=== PATIENT | male | born 1935 | race Caucasian/White ===

== ENCOUNTER 2018-07-18 16:49 | Emergency (ER) | payer OTHER, MEDICARE | END 2018-07-18 17:52 | disposition home or self-care (01) | LOC: FER 16:49 ==

== ENCOUNTER 2021-03-12 11:15 | Emergency (ER) | payer OTHER, MEDICARE ==
[2021-03-12 11:24] VITALS: BP 144/81; PULSE 64; TEMP 98.3; BMI 29.8
[2021-03-12] MEDS ORDERED: NAPROXEN 500 MG TABLET PO ONE (11:45)
[2021-03-12] MEDS ORDERED: NAPROXEN 500 MG TABLET ONE (11:47)
== END 2021-03-12 15:30 | disposition home or self-care (01) ==
LOC: FER 11:15
DX: S82.92XA Unspecified fracture of left lower leg, initial encounter for closed fracture (principal); W19.XXXA Unspecified fall, initial encounter; Y92.9 Unspecified place or not applicable
CPT/HCPCS: 73590-TC-LT-FY; 73610-TC-LT-FY; 73630-TC-LT; 99284-25

== ENCOUNTER 2021-03-14 14:50 | Emergency (ER) | payer OTHER, MEDICARE ==
[2021-03-14 15:06] VITALS: BP 125/63; PULSE 87; TEMP 97.1; BMI 29.8
== END 2021-03-14 16:16 | disposition home or self-care (01) ==
LOC: FER 14:50
DX: S82.892A Other fracture of left lower leg, initial encounter for closed fracture (principal); W01.0XXA Fall on same level from slipping, tripping and stumbling without subsequent striking against object, initial encounter
CPT/HCPCS: 73610-TC-LT-FY; 73630-TC-LT; 99283-25

== ENCOUNTER 2021-03-17 04:24 | Day surgery (SDC) | payer OTHER, MEDICARE ==
[2021-03-16 12:42] VITALS: BMI 29.8
[2021-03-17] MEDS ORDERED: BUPIVACAINE HCL/PF 0.5% (5MG/ML) 10 ML VIAL ONE (07:42)
[2021-03-17] MEDS ORDERED: DEXAMETHASONE SOD PHOSPHATE 10 MG/1 ML VIAL ONE (07:42)
[2021-03-17] MEDS ORDERED: CEFAZOLIN 2 GM in SODIUM CHLORIDE 100 ML IVPB ONE (08:00)
[2021-03-17] MEDS ORDERED: MIDAZOLAM HCL 2 MG/2 ML SINGLE DOSE VIAL ONE (08:11)
[2021-03-17] MEDS ORDERED: ceFAZolin SODIUM 1 GM VIAL IVPB ONE (08:45)
[2021-03-17] MEDS ORDERED: PROPOFOL 20 ML ONE (08:54)
[2021-03-17] MEDS ORDERED: KETOROLAC TROMETHAMINE 30 MG/1 ML VIAL ONE (09:24)
[2021-03-17] MEDS ORDERED: ceFAZolin 2 GRAM PREMIX BAG IVPB ONE (10:00)
[2021-03-17] MEDS ORDERED: oxyCODONE HCL 5 MG TABLET PO PRN (10:06)
[2021-03-17] MEDS ORDERED: ONDANSETRON 4 MG/2 ML VIAL IVPUSH PRN (10:06)
[2021-03-17] MEDS ORDERED: LACTATED RINGERS SOLUTION 1,000 ML IV SCH (10:15)
[2021-03-17] MEDS ORDERED: ACETAMINOPHEN 325 MG TABLET (FP) PO ONE (11:50)
[2021-03-17] MEDS ORDERED: ACETAMINOPHEN 325 MG TABLET (FP) ONE (11:51)
[2021-03-17 13:37] VITALS: BP 128/83; PULSE 83; TEMP 97.1
== END 2021-03-17 13:25 | disposition home or self-care (01) ==
LOC: JASU-SURG 04:24
PROVIDERS: ATTEND Orthopaedic Surgery
PROC: 0QSH04Z Reposition Left Tibia with Internal Fixation Device, Open Approach (ICD-10-PCS; 2021-03-17)
PROC: 0QSK04Z Reposition Left Fibula with Internal Fixation Device, Open Approach (ICD-10-PCS; principal; 2021-03-17 08:00)
DX: S82.842A Displaced bimalleolar fracture of left lower leg, initial encounter for closed fracture (principal); X58.XXXA Exposure to other specified factors, initial encounter; Y93.9 Activity, unspecified; Y92.9 Unspecified place or not applicable
CPT/HCPCS: 76000-TC-FY; 93005; 93010; 94760; J1100

== ENCOUNTER 2021-05-07 10:45 | Emergency (ER) | payer OTHER, MEDICARE ==
[2021-05-07 11:13] VITALS: TEMP 98; BMI 30.7
[2021-05-07 12:05] LABS: ALBUMIN 4.1 g/dl (3.4-5.0); BILIRUBIN,TOTAL 0.5 mg/dl (0.2-1); CALCIUM 9.3 mg/dl (8.5-10); CREATININE 0.9 mg/dl (0.55-1.3); TOT PROT 6.3 g/dl (6.4-8.2)
[2021-05-07] MEDS ORDERED: ASPIRIN 81 MG CHEWABLE TABLETS PO ONE (13:00)
[2021-05-07 13:38] LABS: BASO % 1.1 % (0-2.0); EOS % 3.7 % (0-4.5); HEMATOCRIT 37.9 % (35.4-49); HEMOGLOBIN 12.8 GM/dL (11.7-16.9); LYMPH % 26.3 % (8-40); MCHC 33.7 g/dl (32.0-35.9); MEAN PLT VOLUME 7.1 fl (7.5-11.1); MONO % 11.6 % (3.8-10.2); NEUT % 57.3 % (42.8-82.8); PLATELET COUNT 171 10^3/uL (134-434); RBC 3.99 M/mm3 (4.00-5.60); RDW 14.2 % (11.9-15.9); WHITE BLOOD COUNT 3.5 K/mm3 (4.0-10.0)
[2021-05-07] MEDS ORDERED: ASPIRIN 81 MG CHEWABLE TABLETS ONE (13:40)
[2021-05-07] MEDS ORDERED: NITROGLYCERIN SUBLINGUAL 1/150 0.4 MG TAB SL ONE (16:27)
[2021-05-07] MEDS ORDERED: NITROGLYCERIN SUBLINGUAL 1/150 0.4 MG TAB ONE (16:58)
[2021-05-07 19:18] VITALS: BP 136/75; PULSE 68
== END 2021-05-07 19:30 | disposition short-term general hospital (02) ==
LOC: FER 10:45
DX: I21.4 Non-ST elevation (NSTEMI) myocardial infarction (principal)
CPT/HCPCS: 36415; 71045-TC-FY; 80053; 84484; 85025; 93005; 99285-25; C9803-CS; U0003; U0005

== ENCOUNTER 2021-08-23 23:16 | Emergency (ER) | payer OTHER, MEDICARE ==
[2021-08-23 23:33] VITALS: BP 123/77; PULSE 84; TEMP 100.4; BMI 23.6
[2021-08-23] MEDS ORDERED: ACETAMINOPHEN 325 MG TABLET (FP) PO ONE (23:36)
== END 2021-08-24 00:09 | disposition home or self-care (01) ==
LOC: FER 23:16
DX: J02.9 Acute pharyngitis, unspecified (principal); R50.9 Fever, unspecified
CPT/HCPCS: 0241U-QW; 93005; 99284-25

== ENCOUNTER 2022-04-24 09:44 | Emergency (ER) | payer OTHER, MEDICARE ==
[2022-04-24] MEDS ORDERED: KETOROLAC TROMETHAMINE 15 MG/ML VIAL IM ONE (10:01)
[2022-04-24] MEDS ORDERED: LIDOCAINE 5% TOPICAL PATCH TP ONE (10:01)
[2022-04-24 10:03] VITALS: BP 135/71; PULSE 68; RESP 18; TEMP 97.7; BMI 30.7
[2022-04-24] MEDS ORDERED: LIDOCAINE 5% TOPICAL PATCH ONE (10:03)
[2022-04-24] MEDS ORDERED: KETOROLAC TROMETHAMINE 15 MG/ML VIAL ONE (10:03)
[2022-04-24] MEDS ORDERED: LIDOCAINE PATCH REMOVAL MC SCH (22:00)
== END 2022-04-24 10:31 | disposition home or self-care (01) ==
LOC: FER 09:44
PROC: 3E0233Z Introduction of Anti-inflammatory into Muscle, Percutaneous Approach (ICD-10-PCS; principal; 2022-04-24)
DX: M54.50 Low back pain, unspecified (principal); G89.29 Other chronic pain
CPT/HCPCS: 99284-25

== ENCOUNTER 2022-05-06 11:48 | Emergency (ER) | payer OTHER, MEDICARE ==
[2022-05-06 11:59] VITALS: RESP 18; TEMP 98.9; BMI 30.7
[2022-05-06] MEDS ORDERED: NALOXONE HCL 0.4 MG/ML VIAL IVPUSH ONE (12:05)
[2022-05-06] MEDS ORDERED: NALOXONE HCL 0.4 MG/ML VIAL ONE (12:17)
[2022-05-06] MEDS ORDERED: SODIUM CHLORIDE 500 ML IV STA (12:25)
[2022-05-06 13:09] VITALS: BP 144/78; PULSE 58
== END 2022-05-06 14:18 | disposition home or self-care (01) ==
LOC: FER 11:48
PROC: 3E033GC Introduction of Other Therapeutic Substance into Peripheral Vein, Percutaneous Approach (ICD-10-PCS; principal; 2022-05-06)
PROC: 3E0337Z Introduction of Electrolytic and Water Balance Substance into Peripheral Vein, Percutaneous Approach (ICD-10-PCS; 2022-05-06)
DX: T40.2X1A Poisoning by other opioids, accidental (unintentional), initial encounter (principal)
CPT/HCPCS: 99284-25

== ENCOUNTER 2022-06-29 13:18 | Emergency (ER) | payer OTHER, MEDICARE ==
[2022-06-29 13:54] VITALS: BP 136/87; PULSE 78; RESP 18; TEMP 97.7; BMI 30.7
[2022-06-29] MEDS ORDERED: ACETAMINOPHEN 500 MG TABLET (FP) PO ONE (14:26)
[2022-06-29] MEDS ORDERED: DIPHTH,PERTUSS(ACELL),TET 0.5 ML DISP.SYRIN IM ONE ×2 (14:29→14:30)
[2022-06-29] MEDS ORDERED: ACETAMINOPHEN 325 MG TABLET (FP) ONE (14:30)
== END 2022-06-29 16:57 | disposition home or self-care (01) ==
LOC: FER 13:18
PROC: 3E0234Z Introduction of Serum, Toxoid and Vaccine into Muscle, Percutaneous Approach (ICD-10-PCS; principal; 2022-06-29)
DX: S00.531A Contusion of lip, initial encounter (principal); S00.31XA Abrasion of nose, initial encounter; S51.812A Laceration without foreign body of left forearm, initial encounter; W01.0XXA Fall on same level from slipping, tripping and stumbling without subsequent striking against object, initial encounter; Y93.01 Activity, walking, marching and hiking
CPT/HCPCS: 70450-TC; 70486-TC; 71101-TC-LT-FY; 72125-TC; 90471; 90715; 99284-25

== ENCOUNTER 2022-07-19 17:49 | Emergency (ER) | payer OTHER, MEDICARE ==
[2022-07-19 17:57] VITALS: BP 130/83; PULSE 69; RESP 16; TEMP 97.6; BMI 30.7
[2022-07-19] MEDS ORDERED: LIDOCAINE VISCOUS 2% ORAL/TOP 15 ML UNIT-DOSE CUP MM ONE (18:35)
[2022-07-19] MEDS ORDERED: LIDOCAINE VISCOUS 2% ORAL/TOP 15 ML UNIT-DOSE CUP ONE (18:36)
== END 2022-07-19 18:56 | disposition home or self-care (01) ==
LOC: FER 17:49
DX: R07.0 Pain in throat (principal); R13.10 Dysphagia, unspecified
CPT/HCPCS: 99283-25

== ENCOUNTER 2023-04-01 09:47 | Emergency (ER) | payer OTHER, MEDICARE ==
[2023-04-01 10:12] VITALS: PULSE 71; RESP 18; TEMP 97.7; BMI 30.7
[2023-04-01] MEDS ORDERED: KETOROLAC TROMETHAMINE 15 MG/ML VIAL ONE (10:14)
[2023-04-01] MEDS ORDERED: METHOCARBAMOL 500 MG TABLET ONE (10:14)
[2023-04-01 10:22] LABS: INR 1.03 (0.83-1.09)
[2023-04-01 10:25] LABS: ACTIVATED PTT 33.4 SECONDS (25.2-36.5)
[2023-04-01 10:30] LABS: HEMATOCRIT 35.8 % (35.4-49); HEMOGLOBIN 12.3 G/dL (11.7-16.9); MCH 30.1 pg (25.7-33.7); MCHC 34.3 g/dl (32.0-35.9); MEAN CELL VOLUME 87.9 fl (80-96); MEAN PLT VOLUME 7.7 fl (7.5-11.1); PLATELET COUNT 142.5 10^3/uL (134-434); RBC 4.07 10^6/uL (4.00-5.60); RDW 16.6 % (11.9-15.9); WHITE BLOOD COUNT 4.5 10^3/uL (4.0-10.8)
[2023-04-01] MEDS: KETOROLAC TROMETHAMINE 15 MG/ML VIAL IVPUSH ONE (10:30)
[2023-04-01] MEDS: METHOCARBAMOL 500 MG TABLET PO ONE (10:30)
[2023-04-01 10:54] LABS: PLATELET ESTIMATE ADEQUATE
[2023-04-01 10:59] LABS: ALBUMIN 4.1 g/dl (3.4-5.0); BILIRUBIN,TOTAL 0.4 mg/dl (0.2-1); CALCIUM 9.4 mg/dl (8.5-10.1); CREATININE 1.6 mg/dl (0.6-1.3); POTASSIUM 5.3 mmol/L (3.5-5.1); TOT PROT 6.4 g/dl (6.4-8.2)
[2023-04-01] MEDS: SODIUM CHLORIDE 0.9% 500 ML INFUS.BAG IV ONE (11:45)
[2023-04-01 14:28] VITALS: BP 142/97
== END 2023-04-01 14:30 | disposition home or self-care (01) ==
LOC: FER 09:47
PROC: 3E0333Z Introduction of Anti-inflammatory into Peripheral Vein, Percutaneous Approach (ICD-10-PCS; principal; 2023-04-01)
DX: M54.9 Dorsalgia, unspecified (principal); R06.02 Shortness of breath; R07.9 Chest pain, unspecified
CPT/HCPCS: 36415; 71046-TC-FY; 71275-TC; 80053; 84484; 85027; 85379; 85610; 85730; 93005; 99285-25

== ENCOUNTER 2023-07-23 04:11 | Emergency (ER) | payer OTHER, MEDICARE ==
[2023-07-23 04:21] VITALS: RESP 18; BMI 30.7
[2023-07-23 04:38] VITALS: BP 142/77; PULSE 60; TEMP 97.7
[2023-07-23] MEDS ORDERED: TAMSULOSIN HCL 0.4 MG CAP ONE (04:45)
[2023-07-23] MEDS: TAMSULOSIN HCL 0.4 MG CAP PO ONE (04:46)
== END 2023-07-23 05:05 | disposition home or self-care (01) ==
LOC: FER 04:11
DX: R33.9 Retention of urine, unspecified (principal)
CPT/HCPCS: 99283-25

== ENCOUNTER 2023-09-18 10:26 | Inpatient (IN) | payer OTHER, MEDICARE ==
[2023-09-18] MEDS ORDERED: FAMOTIDINE 20 MG TABLET ONE (13:04)
[2023-09-18] MEDS: FAMOTIDINE 20 MG TABLET PO ONE (13:06)
[2023-09-18 13:21] LABS: HEMATOCRIT 41.7 % (35.4-49); MCH 26.9 pg (25.7-33.7); MCHC 31.1 g/dl (32.0-35.9); MEAN CELL VOLUME 86.4 fl (80-96); MEAN PLT VOLUME 7.7 fl (7.5-11.1); PLATELET COUNT 163.6 10^3/uL (134-434); RBC 4.83 10^6/uL (4.00-5.60); RDW 16.7 % (11.9-15.9); WHITE BLOOD COUNT 5.6 10^3/uL (4.0-10.8)
[2023-09-18] MEDS ORDERED: ACETAMINOPHEN INJECTION 100 ML IVPB ONE (13:42)
[2023-09-18 13:43] LABS: INR 1.02 (0.83-1.09); PROTHROMBIN TIME (PATIENT) 11.6 SEC (9.7-13.0)
[2023-09-18 13:46] LABS: ACTIVATED PTT 37.3 SECONDS (25.2-36.5)
[2023-09-18] MEDS: ACETAMINOPHEN 1000 MG/100 ML BAG IVPB ONE (13:46)
[2023-09-18 14:00] LABS: ALBUMIN 3.5 g/dl (3.4-5.0); ALK PHOS 100 U/L (45-117); ANION GAP 9 mmol/L (4-13); BILIRUBIN,TOTAL 0.3 mg/dl (0.2-1); CALCIUM 9.4 mg/dl (8.5-10.1); CHLORIDE 96 mmol/L (98-107); CO2 28 mmol/L (21-32); CREATININE 0.6 mg/dl (0.6-1.3); GLUCOSE,RANDOM 93 mg/dl (74-106); POTASSIUM 4.1 mmol/L (3.5-5.1); SGOT/AST 18 U/L (15-37); SGPT/ALT 17 U/L (7-52); SODIUM 133 mmol/L (136-145); TOT PROT 5.6 g/dl (6.4-8.2)
[2023-09-18 15:53] LABS: ANISOCYTOSIS 1+
[2023-09-18 15:54] LABS: PLATELET ESTIMATE ADEQUATE
[2023-09-18 17:22] VITALS: BMI 23.1
[2023-09-18 19:51] LABS: HEMATOCRIT 44.7 % (35.4-49); HEMOGLOBIN 13.9 G/dL (11.7-16.9); MCH 26.6 pg (25.7-33.7); MCHC 31.2 g/dl (32.0-35.9); MEAN CELL VOLUME 85.5 fl (80-96); MEAN PLT VOLUME 7.6 fl (7.5-11.1); PLATELET COUNT 192.7 10^3/uL (134-434); RBC 5.23 10^6/uL (4.00-5.60); RDW 16.6 % (11.9-15.9); WHITE BLOOD COUNT 4.6 10^3/uL (4.0-10.8)
[2023-09-18 19:58] LABS: ALBUMIN 3.8 g/dl (3.4-5.0); BILIRUBIN,TOTAL 0.4 mg/dl (0.2-1); CALCIUM 9.7 mg/dl (8.5-10.1); CREATININE 0.7 mg/dl (0.6-1.3); POTASSIUM 3.4 mmol/L (3.5-5.1); TOT PROT 5.9 g/dl (6.4-8.2)
[2023-09-18] MEDS: PANTOPRAZOLE 40 MG TABLET PO SCH (20:39)
[2023-09-18] MEDS: POTASSIUM CHLORIDE ORAL LIQUID 20 MEQ/15 ML PO ONE (21:15)
[2023-09-18] MEDS: GABAPENTIN 400 MG CAPSULE PO SCH (21:15)
[2023-09-18] MEDS: ATORVASTATIN CA 20 MG TABLET (FP) PO SCH (21:15)
[2023-09-18] MEDS: ACETAMINOPHEN 1000 MG/100 ML BAG IVPB PRN (21:59)
[2023-09-18] MEDS: SODIUM CHLORIDE 1,000 ML IV SCH (23:59)
[2023-09-18] MEDS: TEMAZEPAM 15 MG CAPSULE PO ONE (23:59)
[2023-09-19] MEDS: ZOLPIDEM TARTRATE 5 MG TABLET PO ONE (07:05)
[2023-09-19] MEDS: MULTIVITAMINS (DAILY MVI) TABLET (FP) PO SCH (09:53)
[2023-09-19] MEDS: CLOPIDOGREL BISULFATE 75 MG TABLET (FP) PO SCH (09:53)
[2023-09-19] MEDS: POTASSIUM CHLORIDE TABS 10 MEQ TABLET.ER (FP) PO ONE (15:46)
[2023-09-19] MEDS: ACETAMINOPHEN 1000 MG/100 ML BAG IVPB ONE (20:05)
[2023-09-19] MEDS: TEMAZEPAM 15 MG CAPSULE PO ONE (22:41)
[2023-09-20] MEDS: ACETAMINOPHEN 325 MG TABLET (FP) PO PRN (04:35)
[2023-09-20] MEDS: ACETAMINOPHEN 1000 MG/100 ML BAG IVPB ONE ×2 (05:24→15:08)
[2023-09-20] MEDS ORDERED: ACETAMINOPHEN 1000 MG/100 ML BAG IVPB ONE (14:28)
[2023-09-20] MEDS: ACETAMINOPHEN 1000 MG/100 ML BAG IVPB PRN (22:47)
[2023-09-20] MEDS: TEMAZEPAM 15 MG CAPSULE PO ONE (23:55)
[2023-09-21 08:25] LABS: ALBUMIN 3.2 g/dl (3.4-5.0); BILIRUBIN,TOTAL 0.3 mg/dl (0.2-1); CREATININE 0.7 mg/dl (0.6-1.3); POTASSIUM 4.2 mmol/L (3.5-5.1); TOT PROT 4.9 g/dl (6.4-8.2)
[2023-09-21 10:12] LABS: BASO % 0.9 % (0-2.0); EOS % 3.4 % (0-4.5); HEMATOCRIT 38.1 % (35.4-49); HEMOGLOBIN 12.4 GM/dL (11.7-16.9); LYMPH % 21.6 % (8-40); MCH 26.9 pg (25.7-33.7); MCHC 32.4 g/dl (32.0-35.9); MEAN CELL VOLUME 82.9 fl (80-96); MEAN PLT VOLUME 6.8 fl (7.5-11.1); MONO % 9.9 % (3.8-10.2); NEUT % 64.2 % (42.8-82.8); PLATELET COUNT 198 10^3/uL (134-434); RBC 4.59 M/mm3 (4.00-5.60); RDW 17.1 % (11.9-15.9); WHITE BLOOD COUNT 4.5 K/mm3 (4.0-10.0)
[2023-09-21] MEDS ORDERED: CEFTAROLINE FOSAMIL ACETATE 600 MG in DEXTROSE 5%-WATER - 100 ML IVPB SCH (11:15)
[2023-09-21] MEDS: CEFTAROLINE FOSAMIL ACETATE 600 MG in DEXTROSE 5%-WATER - 100 ML IVPB SCH (12:36)
[2023-09-21] MEDS ORDERED: ACETAMINOPHEN 1000 MG/100 ML BAG IVPB ONE (21:59)
[2023-09-21] MEDS: TEMAZEPAM 15 MG CAPSULE PO PRN (22:16)
[2023-09-21] MEDS: SODIUM CHLORIDE NASAL SPRAY 44 ML BOTTLE NS PRN (22:53)
[2023-09-22] MEDS: ACETAMINOPHEN 1000 MG/100 ML BAG IVPB ONE (09:27)
[2023-09-22 17:01] VITALS: BP 139/78; PULSE 87; RESP 16; TEMP 98.8
[2023-09-22] MEDS ORDERED: CEFTAROLINE FOSAMIL ACETATE 600 MG in DEXTROSE 5%-WATER - 100 ML IVPB SCH (22:00)
== END 2023-09-22 17:02 | disposition short-term general hospital (02) | DRG 541 ==
LOC: FER 10:26 → FM/S 15:44 → OBSVTOIN 09-19 11:05
DX: M46.24 Osteomyelitis of vertebra, thoracic region (principal); E78.5 Hyperlipidemia, unspecified; I25.10 Atherosclerotic heart disease of native coronary artery without angina pectoris; I10 Essential (primary) hypertension; E03.9 Hypothyroidism, unspecified; K21.9 Gastro-esophageal reflux disease without esophagitis; M54.16 Radiculopathy, lumbar region; Z87.11 Personal history of peptic ulcer disease; Z95.1 Presence of aortocoronary bypass graft
CPT/HCPCS: 36415; 71046-TC-FY; 72128-TC; 72157-TC; 72158-TC; 80053; 81003; 85025; 85027; 85610; 85651; 85730; 86140; 86850; 86900; 86901; 87040; 93005; 93010; 97116-GP; 97162-GP; 99285-25; G0378; J0131